=== PATIENT | female | born 1925 | race African-American/Black ===

== ENCOUNTER 2017-07-07 10:47 | Inpatient (IN) | payer OTHER ==
[2017-07-07] VITALS (22 sets, daily range): BP systolic 116–137; BP diastolic 63–76
[~2017-07-07] VITALS: Ht 162.6 cm; Wt 104.9 kg
[2017-07-07] MEDS ORDERED: SUCCINYLCHOLINE CHLORIDE 200MG/10ML VIAL IV ONE ×2 (11:15→14:03)
[2017-07-07] MEDS ORDERED: MIDAZOLAM HCL 50 MG in DEXTROSE 5% WATER 40 ML IV ONE (11:15)
[2017-07-07] MEDS ORDERED: ETOMIDATE 2MG/ML 10ML VIAL IV ONE ×2 (11:15→14:03)
[2017-07-07] MEDS ORDERED: MIDAZOLAM HCL 2 MG/2 ML VIAL IV ONE (11:15)
[2017-07-07] MEDS ORDERED: PROPOFOL 10MG/ML 100ML 100 ML IV ONE (11:15)
[2017-07-07] MEDS ORDERED: MIDAZOLAM HCL 5 MG/ML VIAL ONE (11:20)
[2017-07-07 11:32] LABS: BASOPHILS % 0.4 % (0.0-2.0); EOSINOPHILS % 1.2 % (0.0-5.0); HEMATOCRIT. 28.5 % (36.0-48.0); HEMOGLOBIN. 8.9 g/dL (12.0-16.0); LYMPHOCYTES % 48.5 % (20.0-50.0); MEAN CORPUSCULAR HEMOGLOBIN 23.7 pg (28.0-32.0); MEAN CORPUSCULAR VOLUME 75.6 fL (81.0-99.0); MEAN PLATELET VOLUME 8.2 fl (7.4-10.4); MONOCYTES % 5.4 % (2.0-8.0); NEUTROPHILS % 44.5 % (40.0-76.0); PLATELET 290 x1000/uL (130-400); RED BLOOD CELL COUNT 3.77 mill/uL (4.2-5.4); RED CELL DISTRIBUTION WIDTH 23.1 % (11.6-14.6)
[2017-07-07 11:43] LABS: INR 2.3; PARTIAL THROMBOPLASTIN TIME 29.1 sec (23.4-31.0); PROTHROMBIN TIME 23.8 sec (9.4-11.6)
[2017-07-07 11:48] LABS: BG BASE EXCESS 6.7 mmol/L (-2.0-2.0); BG CARBOXYHEMOGLOBIN 0.7 % (0.5-1.5); BG DEOXYHEMOGLOBIN 0.5 % (0.0-5.0); BG FRACTION INSPIRED OXYGEN 100; BG HCO3 ACT 31.7 mmol/L (22.0-26.0); BG METHEMOGLOBIN 0.4 % (0.0-1.5); BG OXYGEN SATURATION 99.5 % (92.0-98.5); BG OXYHEMOGLOBIN 98.4 % (94.0-97.0); BG PH 7.438 (7.350-7.450); BG PO2 520.6 mmHg (75.0-100.0); BG SAMPLE SITE RIGHT RADIAL; BG TIDAL VOLUME(mL) 500 mL; BG TOTAL HEMOGLOBIN 9.2 g/dL (12.0-18.0); BG VENT MODE VENT - A/C; BG VENT RATE 12 set
[2017-07-07 11:53] LABS: CARBON DIOXIDE 34 mEq/L (21-32); CHLORIDE 97 mEq/L (98-107); TROPONIN I 0.07 ng/mL (0.00-0.04)
[2017-07-07] MEDS ORDERED: SODIUM CHLORIDE 0.9% 1,000 ML IV ONE (12:01)
[2017-07-07 12:09] LABS: PLATELET ESTIMATE NORMAL
[2017-07-07] MEDS ORDERED: MIDAZOLAM HCL 50 MG in DEXTROSE 5% WATER 40 ML IV NR (12:15)
[2017-07-07] MEDS ORDERED: PIPERACILLIN/TAZ 3.375G PREMIX 50 ML IV ONE (12:15)
[2017-07-07] MEDS ORDERED: LEVOFLOXACIN 500MG PREMIX 100 ML IV ONE (12:15)
[2017-07-07] MEDS ORDERED: FUROSEMIDE 40MG/4ML VIAL IVP ONE (12:45)
[2017-07-07] MEDS ORDERED: ACETAMINOPHEN 325MG TABLET PO PRN (13:15)
[2017-07-07] MEDS ORDERED: NA PHOS,M-B/NA PHOS,DI-BA ENEMA 118ML PR PRN (13:15)
[2017-07-07] MEDS ORDERED: CLONIDINE 0.1MG TABLET PO PRN (13:15)
[2017-07-07] MEDS ORDERED: LORAZEPAM 2MG/ML CPJ IV PRN (13:15)
[2017-07-07] MEDS ORDERED: VANCOMYCIN 1 G PREMIX 200 ML IV SCH (13:15)
[2017-07-07] MEDS ORDERED: DOCUSATE SODIUM 100MG CAPSULE PO PRN (13:15)
[2017-07-07] MEDS ORDERED: MAGNESIUM/ALUMINUM HYDROXIDE/SIMETHICONE 30ML UDC PO PRN (13:15)
[2017-07-07] MEDS ORDERED: IPRATROPIUM/ALBUTEROL 0.5-3(2.5)MG/3ML NEB INH PRN (13:15)
[2017-07-07] MEDS ORDERED: ONDANSETRON HCL 4MG/2ML VIAL IV PRN (13:15)
[2017-07-07] MEDS ORDERED: DIPHENHYDRAMINE 50MG/ML VIAL IV PRN (13:15)
[2017-07-07] MEDS ORDERED: GUAIFENESIN 200MG/10ML SUGAR FREE UDC PO PRN (13:15)
[2017-07-07] MEDS: PIPERACILLIN/TAZ 3.375G PREMIX 50 ML IV SCH ×2 (16:46→23:14)
[2017-07-07] MEDS ORDERED: FUROSEMIDE 40MG/4ML VIAL ONE (16:55)
[2017-07-07] MEDS ORDERED: VANCOMYCIN 2,000 MG in DEXT 5% WATER 500 ML IV NR (17:00)
[2017-07-07] MEDS: PROPOFOL 10MG/ML 100ML 100 ML IV PRN ×2 (17:41→23:41)
[2017-07-07] MEDS ORDERED: IPRATROPIUM BROMIDE (0.02%) 0.5MG/2.5ML NEB HHN SCH (18:00)
[2017-07-07] MEDS ORDERED: WARFARIN SODIUM 2.5MG TABLET PO NR (18:00)
[2017-07-07] MEDS ORDERED: ALBUTEROL (0.083%) 2.5MG/3ML NEB HHN SCH (18:00)
[2017-07-07] MEDS ORDERED: FERR325T6 PO (18:57)
[2017-07-07] MEDS ORDERED: WARF2.5T47 PO (18:57)
[2017-07-07] MEDS ORDERED: SPIR25TA PO (18:57)
[2017-07-07] MEDS ORDERED: COR3 PO (18:57)
[2017-07-07] MEDS ORDERED: FURO-151 PO (18:57)
[2017-07-07] MEDS ORDERED: ISOS10TA2 PO (18:57)
[2017-07-07] MEDS ORDERED: MOME13HF INH (18:57)
[2017-07-07] MEDS ORDERED: ATOR10TA PO (18:57)
[2017-07-07] MEDS ORDERED: QUET25TA PO (18:57)
[2017-07-07] MEDS ORDERED: OMEP20TA15 PO (18:57)
[2017-07-07] MEDS ORDERED: NEPVIT PO (18:57)
[2017-07-07] MEDS ORDERED: DOCU-138 PO (18:57)
[2017-07-07] MEDS ORDERED: NITR0.4T49 SL (18:57)
[2017-07-07] MEDS ORDERED: SENN-22 PO (18:57)
[2017-07-07 20:37] LABS: CREATINE KINASE MB FRACTION 1.1 ng/mL (0.5-3.6); TROPONIN I 0.05 ng/mL (0.00-0.04)
[2017-07-07] MEDS ORDERED: NOREPINEPHRINE 4 MG in DEXT 5% WATER 246 ML IV PRN (23:30)
[2017-07-08] VITALS (39 sets, daily range): BP systolic 82–131; BP diastolic 46–74
[2017-07-08] MEDS ORDERED: IPRATROPIUM/ALBUTEROL 0.5-3(2.5)MG/3ML NEB HHN SCH
[2017-07-08 03:38] LABS: BASOPHILS % 0.6 % (0.0-2.0); EOSINOPHILS % 1.8 % (0.0-5.0); HEMATOCRIT. 26.9 % (36.0-48.0); HEMOGLOBIN. 8.7 g/dL (12.0-16.0); MEAN CORPUSCULAR VOLUME 74.2 fL (81.0-99.0); MEAN PLATELET VOLUME 7.6 fl (7.4-10.4); MONOCYTES % 8.3 % (2.0-8.0); NEUTROPHILS % 57.3 % (40.0-76.0); PLATELET 232 x1000/uL (130-400); RED BLOOD CELL COUNT 3.63 mill/uL (4.2-5.4); RED CELL DISTRIBUTION WIDTH 23.1 % (11.6-14.6)
[2017-07-08 03:45] LABS: INR 2.2; PROTHROMBIN TIME 22.9 sec (9.4-11.6)
[2017-07-08 04:00] LABS: CREATINE KINASE MB FRACTION 0.9 ng/mL (0.5-3.6); TROPONIN I 0.05 ng/mL (0.00-0.04)
[2017-07-08] MEDS: PROPOFOL 10MG/ML 100ML 100 ML IV PRN ×2 (04:31→10:10)
[2017-07-08] MEDS ORDERED: PANTOPRAZOLE SODIUM 40 MG/VIAL IV SCH (09:00)
[2017-07-08] MEDS ORDERED: ASPIRIN 325MG EC TABLET PO SCH (09:00)
[2017-07-08] MEDS ORDERED: ZINC SULFATE 220 MG ( 50 ) CAPSULE PO SCH (09:00)
[2017-07-08] MEDS: PIPERACILLIN/TAZ 3.375G PREMIX 50 ML IV SCH ×2 (09:09→17:21)
[2017-07-08 09:47] LABS: BG BASE EXCESS 10.1 mmol/L (-2.0-2.0); BG CARBOXYHEMOGLOBIN 0.7 % (0.5-1.5); BG DEOXYHEMOGLOBIN 0.9 % (0.0-5.0); BG FRACTION INSPIRED OXYGEN 40; BG HCO3 ACT 33.8 mmol/L (22.0-26.0); BG METHEMOGLOBIN 0.3 % (0.0-1.5); BG OXYGEN SATURATION 99.1 % (92.0-98.5); BG OXYHEMOGLOBIN 98.1 % (94.0-97.0); BG PCO2 42.3 mmHg (35.0-45.0); BG PH 7.521 (7.350-7.450); BG PO2 158.5 mmHg (75.0-100.0); BG SAMPLE SITE RIGHT RADIAL; BG TIDAL VOLUME(mL) 500 mL; BG TOTAL HEMOGLOBIN 8.6 g/dL (12.0-18.0); BG VENT MODE VENT - A/C; BG VENT RATE 12 set
[2017-07-08] MEDS ORDERED: POTASSIUM CHLORIDE 20MEQ/PACKET PO NR (11:00)
[2017-07-08] MEDS ORDERED: FUROSEMIDE 40MG/4ML VIAL IVP SCH (11:00)
[2017-07-08] MEDS ORDERED: MAGNESIUM 2 G PREMIX 50 ML IV NR (12:30)
[2017-07-08] MEDS ORDERED: WARFARIN SODIUM 2.5MG TABLET PO SCH (18:00)
[2017-07-08] MEDS ORDERED: PROPOFOL 10MG/ML 100ML 100 ML IV PRN (18:30)
[2017-07-08] MEDS ORDERED: ATORVASTATIN CALCIUM 10MG TABLET PO SCH (21:00)
[2017-07-08] MEDS ORDERED: CARVEDILOL 3.125 MG TABLET PO SCH (21:00)
[2017-07-09] MEDS ORDERED: ASPIRIN 81MG EC TABLET PO SCH (09:00)
[2017-07-09] MEDS ORDERED: VANCOMYCIN 1 G PREMIX 200 ML IV SCH (18:00)
== END 2017-07-08 19:00 | disposition short-term general hospital (02) | DRG 871 ==
LOC: ER 10:47 → EDBD 10:47 → EDBEDREQ 10:58 → EDBEDREQTM 11:54 → EDBEDREQ 11:54 → ENRESERV 12:01 → MICUSO 12:45
PROVIDERS: ADMIT Internal Medicine; ATTEND Internal Medicine
PROC: 0BH17EZ Insertion of Endotracheal Airway into Trachea, Via Natural or Artificial Opening (ICD-10-PCS; principal; 2017-07-07)
PROC: 5A1945Z Respiratory Ventilation, 24-96 Consecutive Hours (ICD-10-PCS; 2017-07-07)
DX: A41.9 Sepsis, unspecified organism (principal); G93.41 Metabolic encephalopathy; J96.00 Acute respiratory failure, unspecified whether with hypoxia or hypercapnia; N17.0 Acute kidney failure with tubular necrosis; I50.43 Acute on chronic combined systolic (congestive) and diastolic (congestive) heart failure; J18.9 Pneumonia, unspecified organism; E44.0 Moderate protein-calorie malnutrition; I13.0 Hypertensive heart and chronic kidney disease with heart failure and stage 1 through stage 4 chronic kidney disease, or unspecified chronic kidney disease; N18.4 Chronic kidney disease, stage 4 (severe); I48.91 Unspecified atrial fibrillation; Y95 Nosocomial condition; E11.22 Type 2 diabetes mellitus with diabetic chronic kidney disease; E83.42 Hypomagnesemia; E66.9 Obesity, unspecified; E78.5 Hyperlipidemia, unspecified; D63.8 Anemia in other chronic diseases classified elsewhere; Z79.01 Long term (current) use of anticoagulants; Z95.0 Presence of cardiac pacemaker; Z68.39 Body mass index [BMI] 39.0-39.9, adult; Z88.5 Allergy status to narcotic agent; Z88.0 Allergy status to penicillin; Z88.8 Allergy status to other drugs, medicaments and biological substances; Z79.899 Other long term (current) drug therapy; Z86.74 Personal history of sudden cardiac arrest
CPT/HCPCS: 31500; 31525; 36415; 36600; 70450; 71010; 80048; 80053; 80061; 82375; 82550; 82553; 82805; 83036; 83605; 83690; 83735; 83880; 84478; 84484; 85025; 85610; 85730; 86850; 86900; 87040; 93005; 93970; 94002; 94003; 94640; 99291; C9113; J0330; J1940; J1956; J2250; J2543; J2704; J3370; J3475; J3490; J7030; J7050; J7060; J7611; J7620